=== PATIENT | male | born 1990 | race Caucasian/White ===

== ENCOUNTER 2021-02-11 06:45 | Emergency (ER) | payer MEDICAID ==
[~2021-02-11] VITALS: Ht 182.9 cm; Wt 68.0 kg
--- NOTE | 2021-02-11 06:45 | NUR ---
Patient to ER bed 4 to gown for evaluation. Side rails up. Report given to Ni. ER Dr. Sanders at bedside examining patient.
[2021-02-11 06:54] VITALS: BP_SYST 141
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
--- NOTE | 2021-02-11 06:56 | NUR ---
Seen and examined by Dr. Sanders, ER Attending.
--- NOTE | 2021-02-11 07:00 | NUR ---
Contacted LEONID Treviño s/w [facility] [phone]. will send a unit to converse with patient.
--- NOTE | 2021-02-11 07:10 | NUR ---
Endorsed to day shift for continuity of care in stable condition
--- NOTE | 2021-02-11 07:11 | NUR ---
Patient A&Ox4 Dr. Sanders at . Patient declined rectal exam.
[2021-02-11] MEDS ORDERED: NACL 0.9% 1,000 ML IV ONE (07:15)
[2021-02-11] MEDS ORDERED: KETOROLAC TROMETHAMINE 30 MG VIAL IVP ONE (07:15)
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
[2021-02-11 07:49] LABS: BASOPHILS % (AUTO) 0.4 % (0.0-2.0); EOSINOPHILS # (AUTO) 0.1 K/uL (0.0-0.4); EOSINOPHILS % (AUTO) 1.1 % (0.0-4.0); HEMATOCRIT 49.2 % (36-54); HEMOGLOBIN 17.1 g/dL (14.0-18.0); LYMPHOCYTES # (AUTO) 0.8 K/uL (1.0-5.5); LYMPHOCYTES % (AUTO) 12.4 % (20.5-51.5); MEAN CORPUSCULAR HEMOGLOBIN 33 pg (27-31); MEAN CORPUSCULAR HGB CONC 35 % (32-36); MEAN CORPUSCULAR VOLUME 96 fL (79.0-98.0); MONOCYTES # (AUTO) 0.4 K/uL (0.0-1.0); MONOCYTES % (AUTO) 5.7 % (1.7-9.3); NEUTROPHILS # (AUTO) 5.1 K/uL (1.8-7.7); NEUTROPHILS % (AUTO) 80.4 % (40.0-70.0); PLATELET COUNT (AUTO) 220 K/uL (130-430); RED BLOOD CELL COUNT(AUTO) 5.16 MIL/uL (4.2-6.2); RED CELL DISTRIBUTION WIDTH 13.5 % (9.0-15.0); WHITE BLOOD COUNT (AUTO) 6.4 K/uL (4.8-10.8)
[2021-02-11 08:00] LABS: CALCIUM 9.1 mg/dL (8.4-11.0); CREATININE 1.21 mg/dL (0.55-1.30); POTASSIUM 4.1 mmol/L (3.5-5.1)
--- NOTE | 2021-02-11 08:05 | NUR ---
Patient transported to radiology via wheelchair, accompanied by Kavya WIRE LATHER.
[2021-02-11 08:07] LABS: ALBUMIN 4.2 g/dL (3.4-4.8); TOTAL BILIRUBIN 0.6 mg/dL (0.0-1.0)
--- NOTE | 2021-02-11 08:31 | NUR ---
Returned from radiology, back to [facility].
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
--- NOTE | 2021-02-11 09:02 | NUR ---
ER Dr. ROSADO at bedside discussing results with patient.
--- NOTE | 2021-02-11 09:10 | NUR ---
DEPUTY BURCH AT REPORT #[id number]
[2021-02-11 09:20] VITALS: BP_SYST 141
--- NOTE | 2021-02-11 09:20 | NUR ---
Patient given written and verbal discharge instructions and verbalizes understanding. ER MD discussed with patient the results and treatment provided. Patient in stable condition. ID arm band removed. IV catheter removed intact and dressing applied, no active bleeding. NO Rx given. Patient educated on pain management and to follow up with PMD. Pain Scale 2/10. Opportunity for questions provided and answered. Medication side effect fact sheet provided.
== END 2021-02-11 09:20 | disposition home or self-care (01) ==
LOC: SED 06:45
DX: S09.90XA Unspecified injury of head, initial encounter (principal); Y08.89XA Assault by other specified means, initial encounter; Y93.89 Activity, other specified; Y92.89 Other specified places as the place of occurrence of the external cause; Y99.8 Other external cause status
CPT/HCPCS: 36415; 70450; 72072; 76376; 80053; 82550; 85025; 96374; 99285; G0482; J1885; J7030